=== PATIENT | male | born 2000 | race Caucasian/White ===

== ENCOUNTER 2021-07-11 17:07 | Emergency (ER) | payer OTHER ==
[2021-07-11] MEDS ORDERED: IBUPROFEN 200 MG TAB PO ONE (17:51)
[2021-07-11] MEDS ORDERED: ACETAMINOPHEN 325 MG TABLET ONE (17:51)
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
--- NOTE | 2021-07-11 19:05 | RAD REPORT ---
EXAM DESCRIPTION: RAD - Lumbar Spine 3 Views - 07/11/2021 6:27 pm CLINICAL HISTORY: PAIN Radiculopathy COMPARISON: No comparisons FINDINGS: Vertebral body heights appear maintained. No compression fracture noted. Disc spaces are m aintained. No spondylolysis or spondylolisthesis. IMPRESSION: Negative study.
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
[2021-07-11 19:42] VITALS: BP 147/86; TEMP 97.7; O2SAT 100
== END 2021-07-11 19:23 | disposition home or self-care (01) ==
LOC: ER 17:07
DX: S16.1XXA Strain of muscle, fascia and tendon at neck level, initial encounter (principal); R51.9 Headache, unspecified; V49.9XXA Car occupant (driver) (passenger) injured in unspecified traffic accident, initial encounter
CPT/HCPCS: 70450; 72100; 72125; 99284

== ENCOUNTER 2022-01-01 00:34 | Emergency (ER) | payer OTHER ==
[2022-01-01] MEDS ORDERED: METHYLPREDNISOLONE 125 MG INJ ONE (00:50)
[2022-01-01] MEDS ORDERED: DIPHENHYDRAMINE 50 MG/ML VIAL ONE (00:51)
[2022-01-01] MEDS ORDERED: NA CHLORIDE 0.9% 1,000 ML ONE (00:51)
[2022-01-01] MEDS ORDERED: FAMOTIDINE 20 MG/2 ML VIAL IV ONE (00:51)
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
--- NOTE | 2022-01-01 02:16 | ER ---
Nurse's Notes [facility] Name: Edilberto Summers Age: 21 yrs Sex: Male : 2000 Arrival Date: 01/01/2022 Time: 00:40 Bed 5 Private MD: Diagnosis: Allergy status to unspecified drugs, medicaments and biological substances status Presentation: 01/01 00:47 Chief complaint: Patient states: received cortisone shot for back pain yesterday at 230 kl pm reports feels flushed rash to face also reports SOB handling secretions well. Coronavirus screen: Vaccine status: Patient reports being unvaccinated. Anaphylaxis evaluation, the patient reports or I have noted the following symptoms which indicate a significant risk of anaphylaxis: shortness of breath urticaria. Initial Sepsis Screen: Does the patient meet any 2 criteria? No. Patient's initial sepsis screen is negative. Does the patient have a suspected source of infection? No. Patient's initial sepsis screen is negative. Risk Assessment: Do you want to hurt yourself or someone else? Patient reports no desire to harm self or others. 00:47 Method Of Arrival: Ambulatory kl 00:47 Acuity: ELKIN 3 kl 01:00 Ebola Screen: No symptoms or risks identified at this time. Onset: The symptoms/episode vc1 began/occurred gradually. Onset of symptoms was January 01, 2022. Triage Assessment: 00:50 General: Appears in no apparent distress. comfortable, Behavior is calm, cooperative. kl Derm: face flushed. Historical: - Allergies: 00:50 No Known Allergies; kl - Home Meds: 00:50 Benadryl Oral [Active]; kl - PMHx: 00:50 back pain; kl - Immunization history:: Adult Immunizations not up to date. - Social history:: Smoking status: Patient denies any tobacco usage or history of. Screenin:59 Abuse screen: Denies threats or abuse. Nutritional screening: No deficits noted. vc1 Tuberculosis screening: No symptoms or risk factors identified. Fall Risk None identified. Assessment: 00:59 Pain: Denies pain. Respiratory: Reports shortness of breath at rest Airway is patent vc1 Respiratory effort is even, unlabored, Breath sounds are clear. Vital Signs: 00:47 BP 152 / 79; Pulse 71; Resp 16; Temp 98.7(O); Pulse Ox 100% on R/A; Weight 90.72 kg; kl Height 6 ft. 2 in. (187.96 cm); 01:56 BP 125 / 76; Pulse 55; Resp 15; Pulse Ox 98% on R/A; ll3 00:47 Body Mass Index 25.68 (90.72 kg, 187.96 cm) ED Course: 00:40 Patient arrived in ED. ja2 00:44 Dannie Ricci PA is PHCP. cp 00:44 Saundra Reynoso MD is Attending Physician. cp 00:49 Flor Zarate RN is Primary Nurse. vc1 00:49 Inserted saline lock: 20 gauge in right antecubital area, using aseptic technique. vc1 00:50 Triage completed. kl 01:00 Arm band placed on right wrist. vc1 01:00 Patient has correct armband on for positive identification. Pulse ox on. NIBP on. vc1 02:15 No provider procedures requiring assistance completed. IV discontinued, intact, ll3 bleeding controlled, No redness/swelling at site. Pressure dressing applied. Administered Medications: 00:59 Drug: Benadryl (diphenhydrAMINE) 25 mg Route: IVP; Site: right antecubital; vc1 02:16 Follow up: Response: No adverse reaction ll3 00:59 Drug: SOLU-Medrol (methylPrednisoLONE) 125 mg Route: IVP; Site: right antecubital; vc1 02:16 Follow up: Response: No adverse reaction ll3 00:59 Drug: NS 0.9% 1000 ml Route: IV; Rate: 1 bolus; Site: right antecubital; vc1 02:16 Follow up: Response: No adverse reaction; IV Status: Completed infusion; IV Intake: ll3 1000ml 00:59 Drug: Pepcid (famotidine) 20 mg Route: IVP; Site: right antecubital; vc1 02:16 Follow up: Response: No adverse reaction ll3 Medication: 01:00 VIS not applicable for this client. vc1 Intake: 02:16 IV: 1000ml; Total: 1000ml. ll3 Outcome: 02:08 Discharge ordered by . cp 02:15 Discharged to home ambulatory, with family. ll3 02:15 Condition: stable 02:15 Discharge instructions given to patient, family, Instructed on discharge instructions, follow up and referral plans. medication usage, Demonstrated understanding of instructions, follow-up care, medications, Prescriptions given X 3. 02:16 Patient left the ED. ll3 Signatures: Rajani Gong, RN RN Dannie Mahoney PA PA cp Alexander, Jessica ja2 Loubet, Lynsea RN RN ll3 Flor Zarate RN RN vc1
[2022-01-01 07:26] VITALS: BP 125/76; O2SAT 98
[2022-01-01 07:27] VITALS: TEMP 98.7
== END 2022-01-01 02:16 | disposition home or self-care (01) ==
LOC: ER 00:34
DX: R21 Rash and other nonspecific skin eruption (principal); Z88.9 Allergy status to unspecified drugs, medicaments and biological substances
CPT/HCPCS: 96361; 96375; 96374; 99284; J1200; J7030; J2930

== ENCOUNTER 2022-07-10 21:51 | Emergency (ER) | payer OTHER ==
[2022-07-10] MEDS ORDERED: ACETAMINOPHEN 500 MG TAB ONE (22:53)
[2022-07-10] MEDS ORDERED: IBUPROFEN 400 MG TAB ONE (22:53)
--- NOTE | 2022-07-10 23:10 | ER ---
Nurse's Notes [facility] Name: Edilberto Summers Age: 21 yrs Sex: Male : 2000 Arrival Date: 07/10/2022 Time: 21:51 Bed 11 Private MD: Diagnosis: Sprain of ankle-right Presentation: 07/10 22:08 Chief complaint: Patient states: rolled Right ankle playing basketball; appears swollen vg1 and discolored. Coronavirus screen: Vaccine status: Patient reports being unvaccinated. Client denies travel out of the [place] in the last 14 days. Ebola Screen: Patient negative for fever greater than or equal to 101.5 degrees Fahrenheit, and additional compatible Ebola Virus Disease symptoms Patient denies exposure to infectious person. Patient denies travel to an Ebola-affected area in the 21 days before illness onset. Initial Sepsis Screen: Does the patient meet any 2 criteria? No. Patient's initial sepsis screen is negative. Does the patient have a suspected source of infection? No. Patient's initial sepsis screen is negative. Risk Assessment: Do you want to hurt yourself or someone else? Patient reports no desire to harm self or others. Onset of symptoms was July 10, 2022. 22:08 Method Of Arrival: Wheelchair vg1 22:08 Acuity: ELKIN 4 vg1 Triage Assessment: 22:11 General: Appears uncomfortable, Behavior is cooperative. Pain: Complains of pain in vg1 Right ankle Pain currently is 8 out of 10 on a pain scale. Musculoskeletal: Range of motion: limited in right ankle Swelling present in right ankle. Historical: - Allergies: 22:11 No Known Allergies; vg1 - PMHx: 22:11 Back pain; vg1 - Immunization history:: Client reports having NOT received the Covid vaccine. - Social history:: Smoking status: Patient denies any tobacco usage or history of. Screenin:41 [facility] ED Fall Risk Assessment (Adult) History of falling in the last 3 months, kl including since admission Yes- single mechanical fall (1 pt) Confusion or Disorientation No (0 pts) Intoxicated or Sedated No (0 pts) Impaired Gait No (0 pts) Mobility Assist Device Used No (0 pt) Altered Elimination No (0 pt) Score/Fall Risk Level 0 - 2 = Low Risk Oriented to surroundings, Maintained a safe environment. Abuse screen: Denies threats or abuse. Nutritional screening: No deficits noted. Tuberculosis screening: No symptoms or risk factors identified. Assessment: 23:40 Reassessment: Patient and/or family updated on plan of care and expected duration. Pain kl level reassessed. Patient is alert, oriented x 3, equal unlabored respirations, skin warm/dry/pink. Respiratory: No deficits noted. GI: No deficits noted. No signs and/or symptoms were reported involving the gastrointestinal system. : No deficits noted. No signs and/or symptoms were reported regarding the genitourinary system. Vital Signs: 22:08 Pulse 83; Resp 16; Temp 98.5(TE); Pulse Ox 100% on R/A; Weight 92.99 kg; Height 6 ft. 2 vg1 in. ; Pain 8/10; 23:40 Pulse 79; Resp 18; Pulse Ox 99% ; kl 22:08 Body Mass Index 26.32 (92.99 kg, 187.96 cm) vg1 22:08 Pain Scale: Adult vg1 ED Course: 21:55 Patient arrived in ED. [id number] 21:56 Dannie Ricci PA is PHCP. cp 21:56 Saundra Reynoso MD is Attending Physician. cp 22:11 Triage completed. vg1 22:11 Arm band placed on. vg1 22:43 XRAY Ankle RIGHT 3 view In Process Unspecified. EDMS 23:09 Yaw Murray MD is Referral Physician. cp 23:41 No provider procedures requiring assistance completed. Larry wrap to right ankle. kl 23:42 Patient did not have IV access during this emergency room visit. kl Administered Medications: 22:53 Drug: Ibuprofen PO 800 mg Route: PO; kl 22:53 Drug: Acetaminophen PO 1000 mg Route: PO; kl Outcome: 23:10 Discharge ordered by . cp 23:42 Discharged to home with crutches. kl 23:42 Condition: good 23:42 Discharge instructions given to patient, Instructed on discharge instructions, follow up and referral plans. medication usage, Demonstrated understanding of instructions, follow-up care, medications, crutch walking, Prescriptions given X 1. 23:42 Patient left the ED. kl Signatures: Dispatcher [employer] EDIL Rajani Gong RN RN kl Page, Corey, PA PA cp Garcia, Victoria, RN RN vg1 Blaire Blackwell [email or web address]
--- NOTE | 2022-07-10 23:10 | EDPHYS ---
Physician Documentation [facility] Name: Edilberto Summers Age: 21 yrs Sex: Male : 2000 Arrival Date: 07/10/2022 Time: 21:51 Bed 11 Private MD: ED Physician Saundra Reynoso HPI: 07/10 22:20 This 21 yrs old Male presents to ER via Wheelchair with complaints of Ankle Injury. cp 22:20 The patient presents with an injury, pain, that is acute. The complaints affect the cp right ankle. Onset: The symptoms/episode began/occurred today. Context: The problem was sustained at a sports field or court, The mechanism of injury involved inversion of the affected ankle. The patient can partially bear weight on the affected extremity. the patient is able to ambulate, with moderate difficulty. Associated signs and symptoms: The patient has no apparent associated signs or symptoms. Historical: - Allergies: 22:11 No Known Allergies; vg1 - PMHx: 22:11 Back pain; vg1 - Immunization history:: Client reports having NOT received the Covid vaccine. - Social history:: Smoking status: Patient denies any tobacco usage or history of. ROS: 22:25 MS/extremity: Positive for injury or acute deformity, decreased range of motion, pain, cp swelling, tenderness, Negative for paresthesias. 22:25 Constitutional: Negative for body aches, fever. cp 22:25 Neck: Negative for pain with movement, pain at rest, stiffness. 22:25 Cardiovascular: Negative for chest pain, palpitations. 22:25 Respiratory: Negative for cough, shortness of breath, wheezing. 22:25 Abdomen/GI: Negative for abdominal pain, vomiting, diarrhea, constipation. 22:25 Back: Negative for pain at rest, pain with movement. 22:25 All other systems are negative. Exam: 22:30 Constitutional: The patient appears in no acute distress, alert, awake, non-toxic, well cp developed, well nourished, uncomfortable. 22:30 Head/Face: Normocephalic, atraumatic. cp 22:30 Eyes: Periorbital structures: appear normal, Conjunctiva: normal, no exudate, no injection, Sclera: no appreciated abnormality, Lids and lashes: appear normal, bilaterally. 22:30 ENT: External ear(s): are unremarkable, Nose: is normal, Mouth: Lips: moist, Oral mucosa: moist, Posterior pharynx: is normal, airway is patent, no erythema, no exudate. 22:30 Neck: ROM/movement: is normal, is supple, without pain, no range of motions limitations. 22:30 Chest/axilla: Inspection: normal, Palpation: is normal. 22:30 Cardiovascular: Rate: normal, Rhythm: regular. 22:30 Respiratory: the patient does not display signs of respiratory distress, Respirations: normal, no use of accessory muscles, no retractions, labored breathing, is not present. 22:30 Abdomen/GI: Exam negative for discomfort, distension, guarding, Inspection: abdomen appears normal. 22:30 Back: pain, is absent, ROM is normal. 22:30 Musculoskeletal/extremity: Extremities: grossly normal except: noted in the right ankle: lateral malleolus pain and swelling, tender to palpation, pain with active ROM right ankle. Achilles tendon palpated and intact, no pain to palpation noted proximal right fibula and/or base of right fifth metatarsal. Vital Signs: 22:08 Pulse 83; Resp 16; Temp 98.5(TE); Pulse Ox 100% on R/A; Weight 92.99 kg; Height 6 ft. 2 vg1 in. ; Pain 8/10; 23:40 Pulse 79; Resp 18; Pulse Ox 99% ; kl 22:08 Body Mass Index 26.32 (92.99 kg, 187.96 cm) vg1 22:08 Pain Scale: Adult vg1 Procedures: 23:30 Splinting: Splint applied to right ankle using Orthoglass splint, stirrup type. applied cp by nurse. Examined by me, post splint application: neurovascular intact, Patient tolerated well. MDM: 22:19 Patient medically screened. cp 23:10 Data reviewed: vital signs, nurses notes, radiologic studies, plain films. cp 23:10 Differential diagnosis: fracture, sprain, dislocation. I considered the following cp discharge prescriptions or medication management in the emergency department Medications were administered in the Emergency Department. See MAR. Counseling: I had a detailed discussion with the patient and/or guardian regarding: the historical points, exam findings, and any diagnostic results supporting the discharge/admit diagnosis, radiology results, to return to the emergency department if symptoms worsen or persist or if there are any questions or concerns that arise at home. Response to treatment: the patient's symptoms have markedly improved after treatment, and as a result, I will discharge patient. 07/10 22:08 Order name: XRAY Ankle RIGHT 3 view cp 07/10 22:08 Order name: Ice pack; Complete Time: 22:16 cp 07/10 23:04 Order name: Splint: ankle stirrup cp 07/10 23:04 Order name: Larry Wrap; Complete Time: 23:39 cp 07/10 23:04 Order name: Crutches; Complete Time: 23:39 cp Administered Medications: 22:53 Drug: Ibuprofen PO 800 mg Route: PO; kl 22:53 Drug: Acetaminophen PO 1000 mg Route: PO; Disposition Summary: 07/10/22 23:10 Discharge Ordered Location: Home cp Problem: new cp Symptoms: have improved cp Condition: Stable cp Diagnosis - Sprain of ankle - right cp Followup: cp - With: Yaw Murray MD - When: 2 - 3 days - Reason: Worsening of condition Discharge Instructions: - Discharge Summary Sheet cp - Ankle Sprain cp - RICE Therapy for Routine Care of Injuries cp - Form - Excuse from Work, School, or Physical Activity cp Forms: - Medication Reconciliation Form cp - Thank You Letter cp - Antibiotic Education cp - Prescription Opioid Use cp Prescriptions: - Diclofenac Sodium 75 mg Oral Tablet Sustained Release - take 1 tablet by ORAL route 2 times per day; 30 tablet; Refills: 0, Product cp Selection Permitted Signatures: Dispatcher [employer] Rajani Roberts RN RN kl Page, Corey, PA PA cp Garcia, Victoria RN RN vg1
[2022-07-11 00:38] VITALS: TEMP 98.5
[2022-07-11 00:39] VITALS: O2SAT 99
--- NOTE | 2022-07-11 14:57 | RAD REPORT ---
EXAM DESCRIPTION: RAD - Ankle Right 3 View - 07/10/2022 10:41 pm CLINICAL HISTORY: PAIN TECHNIQUE: Frontal, lateral and oblique views of the right ankle. COMPARISON: No relevant prior studies available. FINDINGS: Bones/joints: Remote appearing mid to distal fibular diaphyseal fracture deformity. No acute fracture. No dislocation. Soft tissues: Mild dorsolateral soft tissue swelling. IMPRESSION: Mild dorsolateral soft tissue swelling. No acute fracture. Electronically signed by: Iza Medina MD 07/10/2022 11:03 PM CDT Due to temporary technical issues with the PACS/Fluency reporting system, reports are being signed by the in house radiologists without review as a courtesy to insure prompt reporting. The interpreting radiologist is fully responsible for the content of the report.
== END 2022-07-10 23:42 | disposition home or self-care (01) ==
LOC: ER 21:51
PROC: 2W3SX1Z Immobilization of Right Foot using Splint (ICD-10-PCS; principal; 2022-07-10)
DX: S93.401A Sprain of unspecified ligament of right ankle, initial encounter (principal)
CPT/HCPCS: 99284

== ENCOUNTER → 2023-05-07 | Emergency (ER) | payer OTHER ==
[~2023-05-07] MED LIST: BUPIVACAINE 0.5% PF 10 ML VIAL ONE; HYDROCODONE/APAP 10/325 TAB ONE; IBUPROFEN 400 MG TAB ONE; LIDOCAINE 1% 20 ML MDV ONE
--- NOTE | 2023-05-08 00:36 | EDPHYS ---
Physician Documentation [facility] Name: Edilberto Summers Age: 22 yrs Sex: Male : 2000 Arrival Date: 05/07/2023 Time: 21:11 Bed 12 Private MD: Seven Andino B ED Physician Rufus Mathur HPI: 05/06 22:00 This 22 yrs old Male presents to ER via Ambulatory with complaints of Finger Injury. cp 22:00 The patient or guardian reports decreased range of motion, deformity, injury. The cp complaints affect the right fourth finger. Context: resulted from playing sports, basketball. Onset: The symptoms/episode began/occurred just prior to arrival. Associated signs and symptoms: Pertinent positives: numbness distally. Historical: - Allergies: 21:20 No Known Allergies; as6 - Home Meds: 21:20 None [Active]; as6 - PMHx: 21:20 None; as6 - PSHx: 21:20 None; as6 - Immunization history:: Adult Immunizations up to date. - Social history:: Smoking status: Patient denies any tobacco usage or history of. ROS: 22:05 MS/extremity: Positive for injury or acute deformity, decreased range of motion, pain, cp paresthesias, swelling, tenderness, of the right fourth finger, 22:05 Constitutional: Negative for body aches, chills, fever, cp 22:05 Neck: Negative for pain with movement, pain at rest, stiffness, 22:05 Respiratory: Negative for cough, 22:05 Back: Negative for pain at rest, pain with movement, 22:05 Neuro: Negative for altered mental status, headache, weakness, 22:05 All other systems are negative, Exam: 22:10 Constitutional: The patient appears in no acute distress, alert, awake, non-toxic, well cp developed, well nourished, uncomfortable, 22:10 Head/Face: Normocephalic, atraumatic. cp 22:10 Neck: ROM/movement: is normal, is supple, without pain, no range of motions limitations, 22:10 Chest/axilla: Inspection: normal, 22:10 Cardiovascular: Rate: normal, Rhythm: regular, Pulses: Pulses are 2+ in right radial artery. 22:10 Respiratory: the patient does not display signs of respiratory distress, Respirations: normal, no use of accessory muscles, no retractions, labored breathing, is not present, Breath sounds: are clear throughout, no decreased breath sounds, no stridor, no wheezing, 22:10 Back: pain, is absent, ROM is normal, 22:10 Musculoskeletal/extremity: Extremities: noted in the right hand: deformity of right fourth finger, good cap refill, mild decreased sensation tip of digit, skin intact, 22:10 Neuro: Orientation: to person, place \T\ time. Mentation: is normal, Motor: moves all fours, strength is normal, Vital Signs: 21:19 BP 126 / 81; Pulse 95; Resp 18 S; Temp 97.8(TE); Pulse Ox 97% on R/A; Weight 88.45 kg as6 (R); Height 6 ft. 2 in. (R); Pain 7/10; 23:25 BP 126 / 75; Pulse 52; Resp 18; Temp 98.7; Pulse Ox 100% on R/A; Weight 88.45 kg; ty Height 6 ft. 2 in. ; Pain 6/10; 05/07 00:30 BP 118 / 68; Pulse 58; Resp 16; Temp 98; Pulse Ox 100% on R/A; Pain 0/10; pf1 05/06 23:25 Body Mass Index 25.04 (88.45 kg, 187.96 cm) ty 05/06 21:19 Pain Scale: Adult as6 23:25 Pain Scale: Adult ty 05/07 00:30 Pain Scale: Adult pf1 Procedures: 05/06 23:59 Reduction: of the PIP joint of left fourth finger, using manipulation, Immobilized with finger splint, Patient tolerated well. Post reduction film - reveals normal alignment. digital block performed with 5 ccs of mixture 1% lidocaine and 0.5% marcaine. MDM: 21:24 Patient medically screened. 22:15 Differential diagnosis: dislocation, open fracture, closed fracture, contusion. 05/07 00:35 Data reviewed: vital signs, nurses notes, radiologic studies, plain films. 00:35 I considered the following discharge prescriptions or medication management in the emergency department Medications were administered in the Emergency Department. See MAR. Counseling: I had a detailed discussion with the patient and/or guardian regarding the historical points, exam findings, and any diagnostic results supporting the discharge/admit diagnosis, lab results, radiology results, to return to the emergency department if symptoms worsen or persist or if there are any questions or concerns that arise at home. Response to treatment: the patient's symptoms have markedly improved after treatment, and as a result, I will discharge patient. 05/06 22:09 Order name: XRAY Hand RIGHT 3 View cp 05/06 23:54 Order name: XRAY Finger-Thumb RIGHT cp 05/07 00:01 Order name: Splint - Finger: aluminum, after post reduction xrays; Complete Time: 01:01 cp Administered Medications: 05/06 23:10 Drug: Ibuprofen PO 800 mg PO once Route: PO; pf1 05/07 00:00 Follow up: Response: No adverse reaction; Marked relief of symptoms; Pain is decreased pf1 05/06 23:10 Drug: HYDROcodone-acetaminophen PO 10 mg-325 mg 1 tabs PO once Route: PO; pf1 05/07 00:00 Follow up: Response: No adverse reaction; Marked relief of symptoms; Pain is decreased; pf1 RASS: Alert and Calm (0) 00:10 Drug: Lidocaine Infiltration (2 %) 5 ml 5 ml Infiltration once; to bedside {Note: pf1 administered per PA. Keiry} Volume: 5 ml; Route: Infiltration; 00:10 Drug: Bupivacaine Infiltration (0.5 %) 5 ml 10 ml Infiltration once Volume: 10 ml; pf1 Route: Infiltration; Disposition: 02:18 Co-signature as Attending Physician, Rufus Mathur MD I agree with the assessment sp4 and plan of care. I reviewed the patient's care provided by the Advanced Practice Provider and agree with the diagnosis and treatment plan. Disposition Summary: 05/08/23 00:35 Discharge Ordered Notes: Location: Home cp Problem: new cp Symptoms: are resolved cp Condition: Stable cp Diagnosis - Dislocation of proximal interphalangeal joint of right ring finger, initial cp encounter Followup: cp - With: Private Physician - When: 5 - 6 days - Reason: Recheck today's complaints Discharge Instructions: - Discharge Summary Sheet cp - Finger or Thumb Dislocation cp Forms: - Medication Reconciliation Form cp - Thank You Letter cp - Antibiotic Education cp - Prescription Opioid Use cp - Patient Portal Instructions cp - Leadership Thank You Letter cp Prescriptions: - Naprosyn 500 mg Oral Tablet - take 1 tablet ORAL route 2 times per day take with food; 30 tablet; Refills: 0, cp Product Selection Permitted Signatures: Dispatcher [employer] EDMS Dannie Ricci PA PA cp Slawson, Ashby, RN RN as6 Catherine Yin RN RN pf1 Rufus Mathur MD MD sp4 Corrections: (The following items were deleted from the chart) 05/06 21:21 21:20 PMHx: Back pain; as6 as6
--- NOTE | 2023-05-08 00:36 | ER ---
Nurse's Notes [facility] Name: Edilberto Summers Age: 22 yrs Sex: Male : 2000 Arrival Date: 05/07/2023 Time: 21:11 Bed 12 Private MD: Seven Andino B Diagnosis: Dislocation of proximal interphalangeal joint of right ring finger, initial encounter Presentation: 05/06 21:19 Chief complaint: Patient states: "I was playing basketball and my right ring finger got as6 caught in a shirt". Coronavirus screen: At this time, the client does not indicate any symptoms associated with coronavirus-19. Ebola Screen: No symptoms or risks identified at this time. Initial Sepsis Screen: Does the patient meet any 2 criteria? No. Patient's initial sepsis screen is negative. Does the patient have a suspected source of infection? No. Patient's initial sepsis screen is negative. Risk Assessment: Do you want to hurt yourself or someone else? Patient reports no desire to harm self or others. Onset of symptoms was May 07, 2023. 21:19 Method Of Arrival: Ambulatory as6 21:19 Acuity: ELKIN 4 as6 Triage Assessment: 21:21 General: Appears in no apparent distress. Behavior is calm, cooperative. Pain: as6 Complains of pain in right hand. Musculoskeletal: Swelling present in dorsal aspect of distal phalanx of right ring finger, dorsal aspect of middle phalanx of right ring finger, dorsal aspect of proximal phalanx of right ring finger, palmar aspect of distal phalanx of right ring finger, palmar aspect of middle phalanx of right ring finger and palmar aspect of proximal phalanx of right ring finger. 23:05 Injury Description: swelling with pain to right hand 4th digit. pf1 Historical: - Allergies: 21:20 No Known Allergies; as6 - Home Meds: 21:20 None [Active]; as6 - PMHx: 21:20 None; as6 - PSHx: 21:20 None; as6 - Immunization history:: Adult Immunizations up to date. - Social history:: Smoking status: Patient denies any tobacco usage or history of. Screenin:05 [facility] ED Fall Risk Assessment (Adult) History of falling in the last 3 months, pf1 including since admission No falls in past 3 months (0 pts) Confusion or Disorientation No (0 pts) Intoxicated or Sedated No (0 pts) Impaired Gait No (0 pts) Mobility Assist Device Used No (0 pt) Altered Elimination No (0 pt) Score/Fall Risk Level 0 - 2 = Low Risk Oriented to surroundings, Maintained a safe environment, Educated pt \\T\\ family on fall prevention, incl call for assistance when getting out of bed, Assessed \\T\\ reinforced patient's understanding of fall precautions, Provided non-skid footwear, Hourly rounding (assess needs \\T\\ fall precautionary measures) done, Used ambulatory aids as needed (educated on \\T\\ assisted with), Used gait belt as appropriate. 23:05 Abuse screen: Denies threats or abuse. Nutritional screening: No deficits noted. pf1 Tuberculosis screening: No symptoms or risk factors identified. Assessment: 23:05 General: Appears in no apparent distress. comfortable, well groomed, well developed, pf1 Behavior is calm, cooperative, appropriate for age, quiet. 23:05 Pain: Complains of pain in right hand 4th digit Pain currently is 6 out of 10 on a pain pf1 scale. Pain began today. Neuro: No deficits noted. Level of Consciousness is awake, alert, obeys commands, Oriented to person, place, time, situation. Cardiovascular: No deficits noted. Capillary refill < 3 seconds Patient's skin is warm and dry. Respiratory: No deficits noted. Airway is patent Respiratory effort is even, unlabored, Respiratory pattern is regular, symmetrical. GI: No deficits noted. No signs and/or symptoms were reported involving the gastrointestinal system. : No deficits noted. No signs and/or symptoms were reported regarding the genitourinary system. EENT: No deficits noted. No signs and/or symptoms were reported regarding the EENT system. Derm: No deficits noted. No signs and/or symptoms reported regarding the dermatologic system. Musculoskeletal: Circulation, motion, and sensation intact. Capillary refill < 3 seconds, Reports pain in right hand 4th digit. 05/07 00:00 Reassessment: Patient appears in no apparent distress at this time. Patient and/or pf1 family updated on plan of care and expected duration. Pain level reassessed. Patient is alert, oriented x 3, equal unlabored respirations, skin warm/dry/pink. Patient states symptoms have improved. Vital Signs: 05/06 21:19 BP 126 / 81; Pulse 95; Resp 18 S; Temp 97.8(TE); Pulse Ox 97% on R/A; Weight 88.45 kg as6 (R); Height 6 ft. 2 in. (R); Pain 7/10; 23:25 BP 126 / 75; Pulse 52; Resp 18; Temp 98.7; Pulse Ox 100% on R/A; Weight 88.45 kg; ty Height 6 ft. 2 in. ; Pain 6/10; 05/07 00:30 BP 118 / 68; Pulse 58; Resp 16; Temp 98; Pulse Ox 100% on R/A; Pain 0/10; pf1 05/06 23:25 Body Mass Index 25.04 (88.45 kg, 187.96 cm) ty 05/06 21:19 Pain Scale: Adult as6 23:25 Pain Scale: Adult ty 05/07 00:30 Pain Scale: Adult pf1 ED Course: 05/06 21:13 Patient arrived in ED. mr 21:13 Seven Andino MD is Private Physician. mr 21:17 Dannie Ricci PA is PHCP. cp 21:17 Rufus Mathur MD is Attending Physician. cp 21:20 Triage completed. as6 21:21 Arm band placed on. as6 22:54 XRAY Hand RIGHT 3 View In Process Unspecified. EDMS 23:05 Patient has correct armband on for positive identification. Bed in low position. Call pf1 light in reach. 23:05 No provider procedures requiring assistance completed. pf1 23:05 Patient did not have IV access during this emergency room visit. pf1 05/07 00:26 XRAY Finger-Thumb RIGHT In Process Unspecified. EDMS 00:30 Aluminum finger splint applied to dorsal aspect of distal phalanx of right ring finger, pf1 dorsal aspect of middle phalanx of right ring finger, dorsal aspect of proximal phalanx of right ring finger, palmar aspect of distal phalanx of right ring finger, palmar aspect of middle phalanx of right ring finger, palmar aspect of proximal phalanx of right ring finger and right ring fingernail. 00:50 Provided Education on: prescription. pf1 Administered Medications: 05/06 23:10 Drug: Ibuprofen PO 800 mg PO once Route: PO; pf1 05/07 00:00 Follow up: Response: No adverse reaction; Marked relief of symptoms; Pain is decreased pf1 05/06 23:10 Drug: HYDROcodone-acetaminophen PO 10 mg-325 mg 1 tabs PO once Route: PO; pf1 05/07 00:00 Follow up: Response: No adverse reaction; Marked relief of symptoms; Pain is decreased; pf1 RASS: Alert and Calm (0) 00:10 Drug: Lidocaine Infiltration (2 %) 5 ml 5 ml Infiltration once; to bedside {Note: pf1 administered per JOSE Ricci.} Volume: 5 ml; Route: Infiltration; 00:10 Drug: Bupivacaine Infiltration (0.5 %) 5 ml 10 ml Infiltration once Volume: 10 ml; pf1 Route: Infiltration; Medication: 00:50 VIS not applicable for this client. pf1 Outcome: 00:35 Discharge ordered by MD. cp 00:50 Discharged to home ambulatory, with family, pf1 00:50 Condition: improved 00:50 Discharge instructions given to patient, family, Instructed on discharge instructions, follow up and referral plans. Demonstrated understanding of instructions, follow-up care, medications, Prescriptions given X 1, 00:50 Patient left the ED. pf1 Signatures: Dispatcher [employer] EDMS Mainor Betsy, Reg Reg mr Dannie Ricci PA PA cp Neftali Bell RN RN as6 Catherine Yin RN RN pf1 Pablo Soto Corrections: (The following items were deleted from the chart) 05/06 21:21 21:20 PMHx: Back pain; as6 as6 05/07 06:29 01:06 Patient left the ED. pf1 pf1 06:35 00:30 Aluminum finger splint applied to dorsal aspect of middle phalanx of right middle pf1 finger, dorsal aspect of proximal phalanx of right middle finger, palmar aspect of distal phalanx of right middle finger, palmar aspect of middle phalanx of right middle finger, palmar aspect of proximal phalanx of right middle finger and right middle fingernail pf1
[2023-05-08 01:46] VITALS: BP 126/75; TEMP 98.7; O2SAT 100
--- NOTE | 2023-05-09 15:01 | RAD REPORT ---
EXAM DESCRIPTION: RAD - Finger-Thumb Right - 05/08/2023 12:25 am CLINICAL HISTORY: Post reduction. COMPARISON: Right hand radiographs from May 07, 2023. TECHNIQUE: Three views of the right hand were obtained: PA, oblique, and lateral radiographs. FINDINGS: Alignment is restored at the ring finger PIP joint. No acute fracture is visualized. Mild surrounding soft tissue swelling. No radiopaque foreign object identified. IMPRESSION: Alignment is restored at the ring finger PIP joint. No acute fracture is visualized. Electronically signed by: Deisi Joaquin MD 05/08/2023 12:38 AM CDT Due to temporary technical issues with the PACS/Fluency reporting system, reports are being signed by the in house radiologists without review as a courtesy to insure prompt reporting. The interpreting radiologist is fully responsible for the content of the report.
--- NOTE | 2023-05-09 15:14 | RAD REPORT ---
EXAM DESCRIPTION: RAD - Hand Right 3 View - 05/07/2023 10:53 pm CLINICAL HISTORY: 22 years, Male, PAIN COMPARISON: None FINDINGS: 3 X-ray views of the right hand (frontal lateral and oblique views) were performed. Bones: There is anterior superior dislocation of the PIP joint fourth finger. No definitive significa nt avulsed fragment. No significant fractures identified within the rest of the right hand Soft tissues: No significant soft tissue swelling. Joints: No gross articular abnormality is identified. Others: There are no gross intraosseous lesions. No periosteal reaction were seen. IMPRESSION: Superior dislocation of the PIP joint fourth finger. Electronically signed by: Kem Garza MD 05/07/2023 11:02 PM CDT Due to temporary technical issues with the PACS/Fluency reporting system, reports are being signed by the in house radiologists without review as a courtesy to insure prompt reporting. The interpreting radiologist is fully responsible for the content of the report.
== END ==
LOC: ER 21:11
PROC: 0RSWXZZ Reposition Right Finger Phalangeal Joint, External Approach (ICD-10-PCS; principal; 2023-05-07)
DX: S63.284A Dislocation of proximal interphalangeal joint of right ring finger, initial encounter (principal)
CPT/HCPCS: 73140; 73130; 99284; 26770; J2001